=== PATIENT | female | born 1975 | race Caucasian/White ===

== ENCOUNTER → 2016-12-05 | Outpatient (CLI) | payer OTHER ==
[~2016-12-05] MED LIST: FERROUS SULFAT325 M2 PO; FLINTSTONES COM1 CTB PO; LABETALOL200 MG PO; LEVOTHROID0.075 MG PO; NICOTINE T21 MG/24 H TD; PERCOCET 5/3251 EACH PO
[2016-12-09 16:40] LABS: Antinuclear Antibodies, IFA Positive (.)
== END ==
LOC: LAB 13:12
PROVIDERS: Nurse Practitioner Family
DX: R70.0 Elevated erythrocyte sedimentation rate (principal); R73.9 Hyperglycemia, unspecified